=== PATIENT | female | born 1940 | race Caucasian/White ===

== ENCOUNTER → 2016-12-16 17:09 | Outpatient (CLI) | payer MEDICARE, OTHER ==
[2013-03-02 12:08] VITALS: BMI 19.7
[~2016-12-16 17:09] MED LIST: FLAGYL500 MG PO; LEVAQUIN500 MG PO; NORVASC5 MG PO; [UNRECOGNIZED DRUG - REMARK] OR
== END | disposition home or self-care (01) ==
LOC: D.MAMMO 10:30
DX: Z12.31 Encounter for screening mammogram for malignant neoplasm of breast (principal)

== ENCOUNTER → 2016-12-27 16:42 | Outpatient (CLI) | payer MEDICARE, OTHER ==
[2013-03-02 12:08] VITALS: BMI 19.7
== END | disposition home or self-care (01) ==
LOC: D.MAMMO 14:00
DX: R92.8 Other abnormal and inconclusive findings on diagnostic imaging of breast (principal)

== ENCOUNTER → 2019-05-24 13:01 | Outpatient (CLI) | payer MEDICARE, OTHER ==
[2013-03-02 12:08] VITALS: BMI 19.7
== END | disposition home or self-care (01) ==
LOC: D.HCCECHO 13:01
PROVIDERS: ATTEND Internal Medicine Cardiovascular Disease
DX: I10 Essential (primary) hypertension (principal)

== ENCOUNTER → 2020-06-04 13:28 | Outpatient (CLI) | payer MEDICARE, OTHER ==
[2013-03-02 12:08] VITALS: BMI 19.7
== END | disposition home or self-care (01) ==
LOC: D.HCCECHO 13:28
PROVIDERS: ATTEND Internal Medicine Cardiovascular Disease
DX: I34.0 Nonrheumatic mitral (valve) insufficiency (principal)

== ENCOUNTER 2020-12-23 10:56 | Day surgery (SDC) | payer MEDICARE, OTHER ==
[~2020-12-23] VITALS: Ht 165.1 cm; Wt 47.8 kg
--- NOTE | ~2020-12-23 | OP ---
PATIENT NAME: FRANCISCO GILMORE MEDICAL RECORD: [id number] :42 LOCATION:D.CAT ADMISSION DATE: SURGEON: YOKO BLACKMAN MD DATE OF OPERATION: 12/23/2020 PREOPERATIVE DIAGNOSIS: Sick sinus syndrome with pauses. POSTOPERATIVE DIAGNOSIS: Sick sinus syndrome with pauses. PROCEDURE: 1. Left subclavian vein dual lead pacemaker placement. 2. Fluoroscopic interpretation. SURGEON: Yoko Blackman MD COSURGEON: Dr. Colon. DESCRIPTION OF PROCEDURE: The patient's left chest was prepped and draped in sterile fashion. A total of 20 mL of 1% lidocaine with epinephrine was infused into the surrounding tissues. A transverse incision was made in the left superolateral chest and a subcutaneous pouch was made over the pectoral fascia. Elwell were used to cannulate the left subclavian vein. Guidewires were advanced with ease. Fluoroscopy was used to note that the wires were in good position in the venous system. Dilator trocar devices were placed over the wires and the wires and dilators were removed. The leads were advanced through the trocars until they rested in the superior vena cava. At this point, Dr. Colon positioned the leads appropriately in the atrium and ventricle. Once the leads were noted to be in good position, then these were sutured into place with 2-0 Ti-Cron. The leads were affixed to the pacemaker, which was then placed into the subcutaneous pouch and sutured down to the pectoral fascia with single interrupted 2-0 Ti-Cron. We irrigated out the wound bed with antibiotic solution. The subcutaneous tissues were reapproximated with interrupted 3-0 Vicryl and the skin was closed with running subcutaneous 5-0 Monocryl. COMPLICATIONS: None. CONDITION: Stable. ANESTHESIA: Local MAC. BLOOD LOSS: Minimal. TRANSINT:[id number] Voice Confirmation ID: [id number] DOCUMENT ID: [id number] YOKO BLACKMAN MD CC: [id number] DICTATION DATE: 12/23/20 1348 LINOLEUM FLOOR INSTALLER: 12/23/202008 [facility] 12/23/20 [facility] [address] [id number]
--- NOTE | ~2020-12-23 | HEMODYNAMI ---
PATIENT:FRANCISCO GILMORE MEDICAL RECORD: [id number] : 42 LOCATION:D.CAT ADMISSION DATE: 12/23/20 Generatedon:113:50 Patient name: FRANCISCO GILMORE Patient #: [id number] SSN: [id number] : 1940 Date of study: 12/23/2020 Page: Of Hemodynamic Procedure Report Patient Data Patient Demographics Procedure consent was obtained First Name: FRANCISCO Gender: Female Last Name: DEIRDRE : 1940 Middle Initial: ROXANNE Age: 80 year(s) Patient #: [id number] Race: SSN: [id number] Additional ID: [id number] Contact details Address: [address] [place] [address] State: [place] City: [place] Zip code: [address] Past Medical History Allergies: No known allergies Admission Admission Data Admission Date: 12/23/2020 Admission Time: 10:56 Arrival Date: 12/23/2020 Arrival Time: 0:00 Admit Source: Other Insurance Payor: Medicare [facility] #: [id number] Height (in.): 64 BSA: 1.5 (m2) Height (cm.): 162.56 BMI: 18.37 (kg/m2) Weight (lbs.): 107 Weight (kg.): 48.53 Lab Results Lab Result Date: 12/23/2020 Lab Result Time: 0:00 Biochemistry Name Units Result Min Max BUN mg/dl 27 --(----)-* 7 18 Creatinine mg/dl 0.9 --(-*--)-- 0.6 1.3 eGFR ml/min 64.18414 *-(----)-- 90 120 NONAFRICAN CBC Name Units Result Min Max Hematocrit % 44.1 --(*---)-- 42 54 Hemoglobin g/dl 14.6 --(-*--)-- 13.5 17.5 Procedure Procedure Types Cath Procedure Diagnostic Procedure PPM/ICD PPM Dual Implant Sedation Charges Moderate Sedation 25-39 minutes Procedure Description Procedure Date Procedure Date: 12/23/2020 Procedure Start Time: 13:22 Procedure End Time: 13:47 Procedure Staff Name Function Diomedes Reyes MD Performing Physician Raymond Parker MD Assisting physician Grady James RN Nurse Eve Powell RT Monitor Jaye Roca RT Scrub Procedure Data Cath Procedure Fluoroscopy Diagnostic fluoroscopy Total fluoroscopy Time: 2.3 time: 2.3 min min Diagnostic fluoroscopy Total fluoroscopy dose: dose: 23.41 mGy 23.41 mGy Estimated blood loss: 5 ml Procedure Complications No complications Procedure Medications Medication Administration Route Dosage Ancef Irrigation Topical 1 g (1gm/500ml NS) Ancef (1Gm/50ml NS) I.V.P.B 1 g Lidocaine 1% added to field 20 Oxygen etCO2 Nasal cannula 2 l/min 0.9% NaCl I.V. 25 ml/hr Versed I.V. 1 mg Fentanyl I.V. 50 mcg Versed I.V. 1 mg Fentanyl I.V. 50 mcg Fentanyl I.V. 25 mcg Versed I.V. 0.5 mg Mechanical Ventricular Support Other mechanical ventricular support: Hemodynamics Rest BSA: 1.5 (m2) HGB: 14.6 (g/dl) O2 Consumption: Estimated: 119.81 (ml/min) O2 Con sumption indexed: Estimated:79.87 (ml/min/m) Heart Rate: 43 (bpm) Snapshots Pre Cath Intra NCS Post Cath Vital Signs Time Heart Resp SPO2 etCO2 NIBP (mmHg) Rhythm Pain Sedation Rate (ipm) (%) (mmHg) Status Level (bpm) 12:39:58 43 18 99 29.8 179/68(108) SB 0 (11) 10(A) , No pain 12:44:20 44 17 100 29.1 173/66(103) SB 0 (11) 10(A) , No pain 12:48:36 41 22 100 26.1 162/76(92) SB 0 (11) 10(A) , No pain 12:52:52 43 17 100 36.6 162/67(114) SB 0 (11) 10(A) , No pain 12:57:52 42 13 99 34.4 Measuring SB 0 (11) 10(A) , No pain 12:58:20 43 11 98 32.1 148/63(96) SB 0 (11) 10(A) , No pain 13:02:34 43 10 98 29.8 135/62(84) SB 0 (11) 10(A) , No pain 13:07:11 43 13 98 39.6 123/56(90) SB 0 (11) 10(A) , No pain 13:11:18 40 11 98 32.8 134/55(96) SB 0 (11) 9(A) , No pain 13:15:26 45 10 92 23.1 123/61(83) SB 0 (11) 9(A) , No pain 13:19:30 46 10 94 38.8 128/64(86) SB 0 (11) 9(A) , No pain 13:23:38 44 10 96 31.3 128/58(84) SB 0 (11) 9(A) , No pain 13:27:44 52 11 93 0 114/64(79) SB 0 (11) 9(A) , No pain 13:31:43 87 10 92 22.4 103/67(94) SB 0 (11) 9(A) , No pain 13:35:41 48 10 95 23.1 114/66(81) SB 0 (11) 9(A) , No pain 13:40:32 89 11 96 30.6 134/77(103) SB 0 (11) 9(A) , No pain 13:44:39 59 11 97 31.3 125/65(98) SB 0 (11) 10(A) , No pain Medications Time Medication Route Dose Verified Delivered Reason Notes Effecti veness by by 12:41:41 Ancef Topical 1 g Confucianist Confucianist used for Irrigation Hiral Parker MD procedure (1gm/500ml NS) 12:41:57 Ancef I.V.P.B 1 g Confucianist Buffie used for (1Gm/50ml Hiral James RN procedure NS) 12:42:14 Lidocaine added 20ml Raymond Andrade for local 1% to vial Hiral Parker MD anesthetic field x2 12:42:28 Oxygen etCO2 2 Raymond Rasmussen used for Nasal l/min Hiral James RN procedure cannula 12:42:43 0.9% NaCl I.V. 25 Confucianist Buffie used for ml/hr Hiral James RN procedure 13:10:22 Versed I.V. 1 mg Raymond Rasmussen for Hiral James RN sedation 13:10:30 Fentanyl I.V. 50 Raymond Grijalvaie for mcg Hiral James RN sedation 13:15:52 Versed I.V. 1 mg Raymond Grijalvaie for Hiral James RN sedation 13:15:56 Fentanyl I.V. 50 Raymond Grijalvaie for mcg Hiral James RN sedation 13:23:05 Fentanyl I.V. 25 Raymond Girjalvaie for mcg Hiral James RN sedation 13:23:11 Versed I.V. 0.5 Raymond Grijalvaie for mg Hiral James RN sedation Procedure Log Time Note 12:00:40 Informed consent obtained and on chart 12:01:07 Other mechanical ventricular support: 12:01:21 Diagnostic Cath Status : Elective 12:01:51 Admit Source: Other 12:01:54 Insurance Payor : Medicare 12:01:56 Arrival Date: 12/23/2020 12:00:00 AM 12:02:17 Patient Height : 64 inches 12:02:20 Patient Weight : 107 lbs 12:03:43 Procedure Status PPM/ Gen Change/ Lead Revision/ Temp. 12:03:45 Time tracking: Regular hours (M-F 7:00 - 5:00) 12:03:49 Plan of Care:Hemodynamics will remain stable., Cardiac rhythm will remain stable., Comfort level will be maintained., Respiratory function will remain adequate., Patient/ family verbilizes understanding of procedure., Procedure tolerated without complication., Recovers from procedure without complications.. 12:03:58 H&P Date Dictated: 12/04/2020 Within 30 days and on chart.. 12:04:00 Family in waiting room. 12:04:02 Patient NPO since Midnight. 12:04:08 Patient allergic to No known allergies 12:04:18 Stress Test: no; N/A ? 12:05:00 Lab results completed and on chart. 12:05:42 Lab Result : BUN 27 mg/dl 12:05:42 Lab Result : eGFR NONAFRICAN 64.98165 ml/min 12:05:42 Lab Result : Creatinine 0.9 mg/dl 12:05:42 Lab Result : Hemoglobin 14.6 g/dl 12:05:42 Lab Result : Hematocrit 44.1 % 12:06:02 Use device set HIRAL PPM 12:06:18 Medtronic food products sales representative GARRET NEWMAN present for procedure. 12:28:00 Grady James RN sent for patient. Start room use. 12:32:18 Patient received from Pre/Post Procedure Room to CCL 3 Alert and oriented. Tansferred to table in Supine position. 12:32:19 Warm blankets applied, and raymundo hugger turned on for patient comfort. 12:32:20 Correct patient and procedure confirmed by team. 12:32:21 ECG and BP/O2 sat monitors applied to patient. 12:32:22 Pre-procedure instructions explained to patient. 12:32:23 Pre-op teaching completed and patient verbalized understanding. 12:38:51 Baseline sample Acquired. 12:38:51 Vital chart was started 12:39:22 Rhythm: sinus bradycardia 12:39:23 Full Disclosure recording started 12:39:25 Is the patient allergic to Iodine/contrast media? No. 12:39:27 Was the patient premedicated? No 12:39:29 Is patient on blood thinner?No 12:39:30 Patient diabetic? No. 12:39:32 Previous problem with sedation/anesthesia? No ? 12:39:34 Snore? No 12:39:36 Sleep apnea? No 12:39:37 Deviated septum? No 12:39:38 Opens mouth fully? Yes 12:39:39 Sticks out tongue? Yes 12:39:47 Airway obstruction? Yes EMPHYSEMA 12:39:50 Dentures? No ? 12:39:54 Pre procedure: right dorsailis pedis pulse 2+ Normal; easily identifiable; not easily obliterated 12:39:56 Pre procedure: left dorsailis pedis pulse 2+ Normal; easily identifiable; not easily obliterated 12:39:59 Patient pain scale 0/10 ?. 12:40:05 IV patent on arrival in left forearm with 0.9% NaCl at O. 12:40:12 Left chest area was prepped with chlora-prep and draped in sterile fashion 12:40:13 Alarms reviewed by R. N. 12:40:13 Sharps counted by scrub and verified by R.N. 12:40:26 2-0 Ticron Multipack ([id number]) opened to sterile field. 12:40:27 3-0 Vicryl Single Pack [id number] opened to sterile field. 12:40:28 5-0 Monocryl PS2 [id number] opened to sterile field. 12:40:28 Cautery Pushbutton Pencil opened to sterile field. 12:40:30 Cautery Tip Hand Rigger opened to sterile field. 12:40:30 Mepilex Dressing (557335) opened to sterile field. 12:41:41 Ancef Irrigation (1gm/500ml NS) 1 g Topical was administered by Raymond Parker MD; used for procedure; Verbal order read back and verified. 12:41:57 Ancef (1Gm/50ml NS) 1 g I.V.P.B was administered by Grady James RN; used for procedure; Verbal order read back and verified. 12:42:[address] Generator [id number] opened to sterile field. 12:42:14 Lidocaine 1% 20ml vial x2 added to field was administered by Raymond Parker MD; for local anesthetic; Verbal order read back and verified. 12:42:28 Oxygen 2 l/min etCO2 Nasal cannula was administered by Grady James RN; used for procedure; Verbal order read back and verified. 12:42:43 0.9% NaCl 25 ml/hr I.V. was administered by Grady James RN; used for procedure; Verbal order read back and verified. 12:42:56 Medtronic 4574-45 PPM Lead opened to sterile field. 12:44:26 Medtronic 4074-52 PPM Lead opened to sterile field. 12:46:42 Pre sharps counted by scrub and verified by RN: Sutures: 7; Sponges: 5; Stick needles: 2; Skin needles: 2; Blade: 1; Cautery: 1 12:46:46 Grounding pad site Left thigh. 12:46:49 Grounding pad site free from injury. 13:09:54 Physician arrived 13::55 --------ALL STOP TIME OUT------ 13:09:55 Final Timeout: patient, procedure, and site verified with staff and physician. All members of the team are in agreement. 13:09:59 Left chest site verified by team. 13:10:03 Fire Safety Assessment: A--An alcohol-based skin anteseptic being used preoperatively., C--Open oxygen or nitrous oxide is being used., D--An ESU, laser, or fiber-optic light is being used. 13:10:07 Physical assessment completed. ASA score P 2 - A patient with mild systemic disease as per Diomedes Reyes MD. 13:10:22 Versed 1 mg I.V. was administered by Grady James RN; for sedation; Verbal order read back and verified. 13:10:30 Fentanyl 50 mcg I.V. was administered by Grady James RN; for sedation; Verbal order read back and verified. 13:15:52 Versed 1 mg I.V. was administered by Grady James RN; for sedation; Verbal order read back and verified. 13:15:56 Fentanyl 50 mcg I.V. was administered by Grady James RN; for sedation; Verbal order read back and verified. 13:19:31 Sedation plan: IV Moderate Sedation Medication:Versed, Fentanyl 13:19:41 Procedure started. 13:22:47 Lidocaine 1% was administered to left subclavicular area by Raymond Parker MD . 13:22:49 Incision made to left subclavicular area. 13:23:05 Fentanyl 25 mcg I.V. was administered by Grady James RN; for sedation; Verbal order read back and verified. 13:23:11 Versed 0.5 mg I.V. was administered by Grady James RN; for sedation; Verbal order read back and verified. 13:27:28 Generator pocket made/opened. 13:27:33 Left subclavian vein accessed with 7Fr Peel Away Sheath. 13:28:18 Ventricular lead inserted and advanced. 13:28:20 Atrial lead inserted and advanced. 13:31:01 Ventricular lead positioned. 13:32:33 Atrial lead positioned. 13:32:35 Peel-a-way sheath was split and removed. 13:32:35 Peel-a-way sheath was split and removed. 13:32:44 Ventricular lead attachment was completed with 2-0 ticron. 13:32:47 Atrial lead attachment was completed with 2-0 ticron. 13:35:52 PPM Dual was attached to lead(s) and inserted into pocket. 13:38:10 Generator was sutured in place with 2-0 ticron. 13:39:59 Device pocket was irrigated with Ancef. 13:42:53 Subcutaneous closure was completed with 3-0 vicryl plus. 13:43:40 Skin closure was completed with 5-0 monocryl. 13:44:05 Parameters-- Generator: Mode: DDDR. Lower Rate: 60bpm. Upper Rate: 120bpm. 13:44:26 Parameters--Ventricular P/R Wave: 5.0mV. Current: 0.2mA; Threshold: 0.2V; Impedence: 943OHMS. 13:44:42 Parameters--Atrial P/R Wave: 0.9mV. Current: 0.5mA; Threshold: 1V; Impedence: 622OHMS. 13:45:26 Immobilizer Sling Medium opened to sterile field. 13:45:40 Lt Chest incision was dressed with Mepilex dressing. 13:45:54 Procedure ended.(Physican Out) 13:46:04 Fluoroscopy time 02.30 minutes. 13:46:08 Fluoroscopy dose: 23.41 mGy 13:46:08 Flurop Dose total: 23.41 13:46:15 Dose Area Product 258.24 mGy/cm. 13:46:19 Insertion/operative site no bleeding no hematoma. 13:46:21 Post Procedure Pulses reassessed and unchanged 13:46:25 Post procedure rhythm: paced 13:46:27 Estimated blood loss: 5 ml 13:46:29 Post procedure instruction explained to patient.Patient verbalizes understanding. 13:46:29 Patient needs reinforcement of post procedure teaching. 13:47:12 Procedure type changed to Cath procedure, Diagnostic procedure, PPM/ICD, PPM Dual Implant, Sedation Charges, Moderate Sedation 25-39 minutes 13:47:13 Procedure and supply charges have been captured, reviewed, submitted and are correct. 13:47:17 Procedure Complication : No complications 13:47:19 Vital chart was stopped 13:47:24 Operative report dictated upon procedure completion. 13:47:24 See physician's report for complete and final results. 13:47:26 Report given to Pre/Post Procedure Room. 13:47:29 Patient transfered to Pre/Post Procedure Room with Stretcher. 13:47:31 Procedure ended. 13:47:31 Full Disclosure recording stopped 13:47:35 End room use (Document Last) 13:48:16 End room use (Document Last) 13:48:40 End room use (Document Last) Device Usage Item Name Manufacture Quantity Catalog Hospital Part Current Minima l Lot# / Number Charge Number Stock Stock Serial# Code 2-0 Ticron Ethicon 8 [id number] 76487 [id number] 5 Multipack ([id number]) 3-0 Vicryl Ethicon 1 [id number] 776555 390842 896107 5 Single Pack [id number] 5-0 Monocryl Ethicon 1 Y495G 716485 937122 595691 5 PS2 Y495G Cautery Microtek 1 [id number] 970189 29531 [id number] 5 Pushbutton [employer] Pencil Cautery Tip Microtek 1 [id number] 122382 274167 [id number] 5 Hand Rigger [employer] Inc[employer] Mepilex Cardinal 1 655520 162107 092269 083498 5 Dressing Health ([id number]) Medtronic Medtronic 1 [id number] 723866 [id number] [id number] [id number] EXP Generator 03-11-2022 [id number] Medtronic Medtronic 1 4574-45 383627 364352 623470 5 [id number] 4574-45 PPM EXP Lead 04-10-2022 Medtronic Medtronic 1 4074-52 834721 483544 457823 5 [id number] 4074-52 PPM EXP Lead 06-06-2022 Immobilizer Cardinal 1 [id number] 742754 753454 5 Sling Medium Health Signature Audit [place] Stage Time Signature Unsigned Intra-Procedure 12/23/2020 Eve Powell 1:48:16 PM RT(R) Intra-Procedure 12/23/2020 Grady James RN 1:48:40 PM Intra-Procedure 12/23/2020 Diomedes Rosales 1:50:01 PM Lio [facility] [address] [place] [address]
[2020-12-23] MEDS ORDERED: BETAPACE 80 MG80 MG PO (11:15)
[2020-12-23] MEDS ORDERED: LISINOPRIL20 MG (11:16)
[2020-12-23] MEDS ORDERED: LIPITOR10 MG PO (11:17)
[2020-12-23] MEDS ORDERED: BAYER CHEWABLE81 MG PO (11:18)
[2020-12-23] MEDS ORDERED: VITAMIN D325 MC1 PO (11:19)
[2020-12-23 11:32] VITALS: BP 171/63; Ht 165.1 cm; Wt 47.8 kg
[2020-12-23 11:51] LABS: ANION GAP 12.3 mmol/L (8-16); CALCIUM 8.9 mg/dL (8.5-10.1); CARBON DIOXIDE 27.8 mmol/L (21.0-32.0); CREATININE - SERUM 0.9 mg/dL (0.6-1.3); POTASSIUM - SERUM 4.1 mmol/L (3.5-5.1)
[2020-12-23 11:57] LABS: HEMATOCRIT 44.1 % (36.0-48.0); HEMOGLOBIN 14.6 g/dL (12-16); MCH 31.9 pg (26.0-34.0); MCHC 33.1 g/dL (31.0-37.0); MCV 96.5 fL (80.0-100.0); MEAN PLATELET VOLUME 11.6 fL (7.4-10.4); RBC 4.57 10x6/uL (4.00-5.40); WBC 8.6 10x3/uL (4.8-10.8)
[2020-12-23 12:14] LABS: APTT 29.9 SECONDS (22.8-39.4); INR 1.06 (0.85-1.17); PROTIME 12.7 SECONDS (11.6-15.0)
--- NOTE | 2020-12-23 14:01 | NUR ---
PT ARRIVED BY STRETCHER. PLACED ON MONITORS. ASSESSMENT COMPLETED. CALL LIGHT WITHIN REACH. FAMILY AT BEDSIDE. LEFT UPPER CHEST DRESSING C/D/I. LEFT ARM IN SLING. DR. JUSTICE ROUNDED AND SPOKE WITH PT'S .
--- NOTE | 2020-12-23 14:15 | NUR ---
PT RESTING COMFORTABLY. LEFT UPPER CHEST DRESSING C/D/I. NO S/S OF HEMATOMA NOTED. LEFT ARM IN SLING. FAMILY AT BEDSIDE. PT DOES NOT WANT A DRINK AT THIS TIME. DENIES NAUSEA.
--- NOTE | 2020-12-23 14:20 | NUR ---
RADIOLOGY AT BEDSIDE FOR CXR.
--- NOTE | 2020-12-23 14:43 | NUR ---
LEFT UPPER CHEST DRESSING C/D/I. NO S/S OF HEMATOMA NOTED. PT REFUSING FOOD. IS DRINKING COFFEE AND TOLERATING FLUIDS. DENIES NAUSEA/PAIN. CXR REPORT REVIEWED AND NO ISSUES WITH PACEMAKER PLACEMENT NOTED. FAMILY AT BEDSIDE.
--- NOTE | 2020-12-23 15:00 | NUR ---
LEFT UPPER CHEST DRESSING C/D/I. NO S/S OF HEMATOMA NOTED. PIV D/C'D WITH CATH TIP INTACT. TOLERATED WELL. DISCUSSED DISCHARGE INSTRUCTIONS WITH PT AND PT'S . THEY VOICED UNDERSTANDING. PT'S HANDED PACEMAKER BOOKLET BY LUL RANDLE RN WHEN PT CAME OUT OF PROCEDURE. PT ASSISTED IN GETTING DRESSED. LEFT ARM SLING IN PLACE. PT DID NOT NEED TO USE RESTROOM. DENIES NAUSEA/PAIN.
--- NOTE | 2020-12-23 15:15 | NUR ---
PT TAKEN OUT TO VEHICLE BY WHEELCHAIR. NO S/S OF DISTRESS NOTED. ALL BELONGINGS AND PAPERWORK IN HAND. LEFT UPPER CHEST DRESSING C/D/I. NO S/S OF HEMATOMA NOTED.
--- NOTE | 2020-12-24 08:06 | OP ---
PATIENT NAME: VERÓNICA RAMIREZ MEDICAL RECORD: [id number] :42 LOCATION:D.CAT ADMISSION DATE: SURGEON: JUAN JUSTICE MD DATE OF OPERATION: 12/23/2020 PROCEDURE: Lead portion of permanent pacemaker placement. INDICATION: Sick sinus syndrome with pauses greater than 4.5 seconds. DESCRIPTION OF THE PROCEDURE: After the left subclavian was cannulated via modified Seldinger technique via Dr. Parker first under fluoroscopic guidance to the RV. I placed RV lead in the RV apex without difficult. After adequate thresholds and R waves were obtained, I then placed the right atrial lead in the right atrial appendage without difficulty. After adequate P waves and threshold were obtained, the leads were attached to appropriate poles of the generator and the pocket was closed via Dr. Parker. IMPRESSION: Successful lead portion permanent pacemaker placement on Verónica Ramirez. ESTIMATED BLOOD LOSS: Minimal. COMPLICATIONS: None. DISPOSITION: To the floor, stable. TRANSINT:[id number] Voice Confirmation ID: [id number] DOCUMENT ID: [id number] JUAN JUSTICE MD at 0806 CC: [id number] DICTATION DATE: 12/23/20 1344 GRID OPERATOR: 12/23/20 1929 [facility] 12/23/20 [facility] [address] [facility] [place] [address]
== END 2020-12-23 15:15 | disposition home or self-care (01) ==
LOC: D.CATH 10:56
PROVIDERS: ATTEND Internal Medicine Interventional Cardiology
DX: I49.5 Sick sinus syndrome (principal); I49.9 Cardiac arrhythmia, unspecified; I10 Essential (primary) hypertension; E78.5 Hyperlipidemia, unspecified; I48.91 Unspecified atrial fibrillation; I34.0 Nonrheumatic mitral (valve) insufficiency